=== PATIENT | female | born 1935 | race Caucasian/White ===

== ENCOUNTER 2019-09-05 19:47 | Observation (INO) ==
[2019-09-05] MEDS ORDERED: 0.9 % Sodium Chloride 1,000 ML IVC STA (20:05)
[2019-09-05] MEDS ORDERED: Ondansetron 4 MG/2 ML VIAL IVP STA (20:05)
[2019-09-05 20:29] LABS: Basophils # 0.1 K/mcL (0.0-0.2); Basophils % 0.4 %; Eosinophils # 0.1 K/mcL (0.0-0.6); Eosinophils % 0.8 %; Hematocrit 49.5 % (35.3-44.9); Hemoglobin 16.8 g/dL (11.5-15.4); Immature Granulocytes % 0.4 % (0-4); Lymphocytes # 1.6 K/mcL (0.6-4.6); Lymphocytes % 11.2 %; Mean Corpuscular HGB Conc 33.9 g/dL (31.6-35.5); Mean Corpuscular Volume 94.3 fL (83.0-100.0); Mean Platelet Volume 9.8 fL (9.4-12.4); Monocytes # 0.7 K/mcL (0.0-1.3); Monocytes % 4.8 %; Neutrophils # 11.7 K/mcL (1.6-8.9); Platelet Count 234 K/mcL (140-400); Red Blood Count 5.25 M/mcL (3.82-4.97); Red Cell Distribution Width 12.3 % (11.5-14.5); Segmented Neutrophils % 82.4 %; White Blood Count 14.2 K/mcL (4.3-11.1)
[2019-09-05 20:39] LABS: Bilirubin,Urine Negative (Negative); Blood,Urine Negative (Negative); Clarity,Urine Cloudy (Clear); Color,Urine Dark Yellow (Yellow); Glucose,Urine (UA) Normal (Normal); Ketones,Urine Negative (Negative); Leukocyte Esterase,Urine Moderate (Negative); Nitrite,Urine Negative (Negative); PH,Urine 7.5 pH Units (5.0-8.0); Protein,Urine 30 mg/dL (Neg-Trace); Specific Gravity,Urine 1.018 (1.010-1.025); Urobilinogen,Urine Normal (Normal)
[2019-09-05 20:41] LABS: Bacteria,Urine Many per hpf (None-Few); Hyaline Casts,Urine Few per lpf (None-Few); RBC,Urine 0-3 per hpf (0-3); Squamous Epithelial Cell,Urine Moderate per lpf (None-Few); WBC,Urine TNTC per hpf (0-3)
[2019-09-05 20:48] LABS: BUN/Creatinine Ratio 29 (6-26); Blood Urea Nitrogen 29 mg/dL (8-23); Calcium 10.3 mg/dL (8.6-10.3); Carbon Dioxide 30 mEq/L (23-29); Chloride 101 mEq/L (98-107); Glucose 163 mg/dL (70-105); Magnesium 2.4 mg/dL (1.6-2.6); Osmolality,Calculated 303 (280-300); Phosphorous 3.8 mg/dL (2.7-4.5); Potassium 3.5 mEq/L (3.5-5.1); Sodium 142 mEq/L (136-145); eGFR For African Americans > 60 (> 60); eGFR For Non-African Americans 52 (> 60)
[2019-09-05] MEDS ORDERED: cefTRIAXone 1,000 MG in 0.9 % Sodium Chloride Mini Bag 100 ML IVPB STA (21:01)
[2019-09-05] MEDS ORDERED: MetroNIDAZOLE 500 MG/100 ML 500 MG/100 ML BAG IVPB ONE (22:20)
[2019-09-05] MEDS ORDERED: 0.9 % Sodium Chloride 1,000 ML IVC SCH (23:00)
[2019-09-06] MEDS ORDERED: Ondansetron 4 MG/2 ML VIAL IVP PRN (00:53)
[2019-09-06] MEDS ORDERED: Acetaminophen 325 MG TABLET PO PRN (00:53)
[2019-09-06] MEDS ORDERED: Ringers Solution, Lactated 1,000 ML IVC SCH (01:00)
[2019-09-06] MEDS ORDERED: Famotidine 20 MG/2 ML VIAL IVP ONE (01:09)
[2019-09-06] MEDS ORDERED: 0.9 % Sodium Chloride 1,000 ML IVC SCH (01:15)
[2019-09-06] MEDS ORDERED: *HR* Heparin 5,000 UNIT/ML VIAL SQ SCH (06:00)
[2019-09-06 07:47] LABS: Basophils % 0.1 %; Hematocrit 40.5 % (35.3-44.9); Immature Granulocytes % 0.5 % (0-4); Lymphocytes # 1.3 K/mcL (0.6-4.6); Lymphocytes % 8.9 %; Mean Corpuscular HGB Conc 34.6 g/dL (31.6-35.5); Mean Corpuscular Volume 92.5 fL (83.0-100.0); Mean Platelet Volume 10.4 fL (9.4-12.4); Monocytes # 0.9 K/mcL (0.0-1.3); Monocytes % 6.4 %; Neutrophils # 12.1 K/mcL (1.6-8.9); Platelet Count 186 K/mcL (140-400); Red Blood Count 4.38 M/mcL (3.82-4.97); Red Cell Distribution Width 12.4 % (11.5-14.5); Segmented Neutrophils % 84.1 %; White Blood Count 14.3 K/mcL (4.3-11.1)
[2019-09-06 08:04] LABS: BUN/Creatinine Ratio 34 (6-26); Blood Urea Nitrogen 23 mg/dL (8-23); Calcium 8.7 mg/dL (8.6-10.3); Carbon Dioxide 27 mEq/L (23-29); Chloride 104 mEq/L (98-107); Glucose 116 mg/dL (70-105); Osmolality,Calculated 297 (280-300); Potassium 2.9 mEq/L (3.5-5.1); Sodium 141 mEq/L (136-145); eGFR For African Americans > 60 (> 60); eGFR For Non-African Americans > 60 (> 60)
[2019-09-06] MEDS ORDERED: hydroCHLOROthiazide 25 MG TABLET PO SCH (09:00)
[2019-09-06] MEDS: Lisinopril 20 MG TABLET PO SCH (09:21)
[2019-09-06] MEDS: Apixaban 5 MG TABLET PO SCH ×2 (09:21→22:04)
[2019-09-06] MEDS: amLODIPine 5 MG TABLET PO SCH (09:21)
[2019-09-06] MEDS: Dorzolamide/Timolol 1 DROP LEFT EYE SCH ×2 (12:15→22:05)
[2019-09-06] MEDS: cephALEXin 500 MG CAPSULE PO SCH ×2 (12:53→16:33)
[2019-09-06 14:51] LABS: Magnesium 1.8 mg/dL (1.6-2.6); Potassium 2.8 mEq/L (3.5-5.1)
[2019-09-06] MEDS ORDERED: Calcium Gluconate 2,000 MG in 0.9 % Sodium Chloride 100 ML IVPB ONE (15:14)
[2019-09-06] MEDS: MetroNIDAZOLE 500 MG/100 ML 500 MG/100 ML BAG IVPB SCH (18:01)
[2019-09-06] MEDS ORDERED: Latanoprost 2.5 ML BOTTLE LEFT EYE SCH (21:00)
[2019-09-07] MEDS: MetroNIDAZOLE 500 MG/100 ML 500 MG/100 ML BAG IVPB SCH ×2 (00:50→07:34)
[2019-09-07 05:27] LABS: Basophils % 0.2 %; Eosinophils # 0.1 K/mcL (0.0-0.6); Eosinophils % 0.4 %; Hematocrit 37.3 % (35.3-44.9); Hemoglobin 12.7 g/dL (11.5-15.4); Immature Granulocytes % 0.4 % (0-4); Lymphocytes # 1.9 K/mcL (0.6-4.6); Lymphocytes % 13.5 %; Mean Corpuscular Hemoglobin 31.4 pg (28.0-33.3); Mean Corpuscular Volume 92.3 fL (83.0-100.0); Mean Platelet Volume 10.3 fL (9.4-12.4); Monocytes # 0.9 K/mcL (0.0-1.3); Monocytes % 6.7 %; Neutrophils # 10.8 K/mcL (1.6-8.9); Platelet Count 161 K/mcL (140-400); Red Blood Count 4.04 M/mcL (3.82-4.97); Red Cell Distribution Width 12.3 % (11.5-14.5); Segmented Neutrophils % 78.8 %; White Blood Count 13.7 K/mcL (4.3-11.1)
[2019-09-07 05:44] LABS: BUN/Creatinine Ratio 21 (6-26); Blood Urea Nitrogen 12 mg/dL (8-23); Calcium 8.9 mg/dL (8.6-10.3); Carbon Dioxide 27 mEq/L (23-29); Chloride 105 mEq/L (98-107); Glucose 117 mg/dL (70-105); Osmolality,Calculated 283 (280-300); Potassium 3.2 mEq/L (3.5-5.1); Sodium 136 mEq/L (136-145); eGFR For African Americans > 60 (> 60); eGFR For Non-African Americans > 60 (> 60)
[2019-09-07 07:13] VITALS: BP 152/66
[2019-09-07] MEDS: Dorzolamide/Timolol 1 DROP LEFT EYE SCH (07:35)
[2019-09-07] MEDS: amLODIPine 5 MG TABLET PO SCH (07:35)
[2019-09-07] MEDS: Lisinopril 20 MG TABLET PO SCH (07:35)
[2019-09-07] MEDS: Apixaban 5 MG TABLET PO SCH (07:35)
== END 2019-09-07 11:12 | disposition home or self-care (01) ==
LOC: 3BNU 19:47 → EMEROOARM 19:47 → SUATTDRO 22:55 → 3BNU 23:49
PROVIDERS: ADMIT Internal Medicine; ATTEND Student in an Organized Health Care Education/Training Program